=== PATIENT | female | born 1980 | race Caucasian/White ===

== ENCOUNTER 2023-06-25 12:36 | Emergency (ER) | payer BC, SELFPAY ==
[2023-06-25 12:41] VITALS: BP 125/78; PULSE 74; RESP 16; TEMP 36.6; O2SAT 100; BMI 25.8
--- NOTE | 2023-06-25 12:53 | XRR_ITS ---
PROCEDURE INFORMATION: Exam: XR Right Finger(s) Exam date and time: 06/25/2023 1:04 PM Age: 43 years old Clinical indication: Injury or trauma; Other: Smashed; Work related; Blunt trauma (contusions or hematomas); Finger; Right; Thumb; Additional info: Trauma; Thumb TECHNIQUE: Imaging protocol: Radiologic exam of the right fingers. Views: Minimum 2 views. COMPARISON: No relevant prior studies available. FINDINGS: Bones/joints: Acute nondisplaced fracture of the thumb distal phalanx. There is lucency through the proximal phalanx of the thumb in the region of the interphalangeal joint, possibly projectional. Consider additional views or correlation with CT to exclude nondisplaced fracture of the proximal phalanx. Soft tissues: Soft tissue edema of the thumb. No evidence of radiopaque foreign body. XR/XR finger RT min 2V [id number] IMPRESSION: 1. Acute nondisplaced fracture of the thumb distal phalanx with soft tissue edema. 2. Lucency through the proximal phalanx of the thumb in the region of the interphalangeal joint, possibly projectional. Consider additional views or correlation with CT to exclude nondisplaced fracture of the proximal phalanx.
--- NOTE | 2023-06-25 12:53 | XRR_ITS ---
PROCEDURE INFORMATION: Exam: XR Left Finger(s) Exam date and time: 06/25/2023 1:04 PM Age: 43 years old Clinical indication: Injury or trauma; Other: Smashed; Work related; Blunt trauma (contusions or hematomas); Finger; Left; Thumb; Additional info: Trauma; Thumb TECHNIQUE: Imaging protocol: Radiologic exam of the left fingers. Views: Minimum 2 views. COMPARISON: No relevant prior studies available. FINDINGS: Bones/joints: No evidence of fracture or subluxation. Soft tissues: Grossly unremarkable. No evidence of radiopaque foreign body. XR/XR finger LT min 2V [id number] IMPRESSION: 1. No evidence of fracture or subluxation.
--- NOTE | 2023-06-25 12:53 | ED_ITS ---
HPI - Extremity Injury (Upper) General: Chief Complaint: Extremity Injury, Upper Stated Complaint: smashed left and right thumbs Time Seen by Provider: 06/25/23 12:38 Source: patient Mode of arrival: ambulatory Limitations: no limitations History of Present Illness: Patient is a 43-year-old female presents to ED today with complaint of bilateral thumb pain/injury that she sustained after she was driving fence posts and accidentally smashed both thumbs. She states her tetanus is up-to-date. complaint: injury to: left, right and finger (thumbs) Onset (ago): hour(s) Other Extremity Injury: Bilateral: fingers (thumbs) Other injuries: none Place: home Severity: mild Relieving factors: none Exacerbating factors: none Context: crush Associated symptoms: Reports no associated symptoms Review of Systems Musc: Reports: extremity pain (bilateral thumbs) Neuro: Denies: numbness in extremities or sensory changes Physical Exam Const: COMMON NORMALS: no acute distress, average body habitus, patient oriented x3, no limitations, healthy appearing, alert and well nourished Extremity: COMMON NORMALS: full ROM and capillary refill normal GENERAL: Yes normal exam except as noted RIGHT UPPER EXTREMITY: Yes hand & digits (contusion to distal R thumb with non-viable skin flap/tear) Right hand and digits: Yes ROM exam (normal) LEFT UPPER EXTREMITY: Yes hand & digits (L thumb contusion at IP joint; edema; abrasion; no laceration) Left hand and digits: Yes neurovascular exam (normal) Neuro: COMMON NORMALS: patient oriented x3, moves all extremities, no focal motor deficits and no sensory deficits noted SENSORIUM/ORIENTATION: Yes alert Course Vital Signs: Vital signs: Vital Signs Temperature 97.9 F 06/25/23 12:41 Pulse Rate 74 06/25/23 12:41 Respiratory Rate 16 06/25/23 12:41 Blood Pressure 125/78 06/25/23 12:41 Pulse Oximetry 100 06/25/23 12:41 Oxygen Delivery Me thod Room Air 06/25/23 12:41 MDM - Extremity Injury (Upper) Medical Decision Making Patient underwent XR imaging of R and L thumbs due to injuries. Unfortunately there was initially a mix up on the XRs and the L thumb got x-rayed under the R thumb order and vice versa. This lead to me initially telling the patient her R thumb was broke and will be splinted instead of her L. This error was caught by the patient herself who alerted me that she felt the XRs were backwards which indeed they were. Patient does seem agitated regarding the mistake and I fully apologized for the error. XR tech was also alerted and they will change the films. Patient's left thumb will be splinted and she will follow up with orthopedics for this. Return to ED precautions given. Infection/wound care precautions discussed in regards to the abrasions/skin tears. Nothing was amendable to closure/repair today. XR interpretation done by ED provider, pending radiology final review Discharge Plan Discharge Patient Disposition: Home Clinical Impression: Fracture of proximal phalanx of left thumb Qualifiers: Encounter type: initial encounter Fracture type: closed Fracture alignment: nondisplaced Qualified Code(s): S62.515A - Nondisplaced fracture of proximal phalanx of left thumb, initial encounter for closed fracture Fracture of distal phalanx of left thumb Qualifiers: Encounter type: initial encounter Fracture type: closed Fracture alignment: nondisplaced Qualified Code(s): S62.525A - Nondisplaced fracture of distal phalanx of left thumb, initial encounter for closed fracture Condition: Stable Prescriptions: New cephalexin 500 mg capsule 500 mg PO Q6H 7 Days Qty: 28 0RF Discharge Orders: Discharge ED (Routine); Ordered 06/25/23 Ordered By: Nhung Dugan Patient Instructions: Thumb Fracture (ED) Activity Restrictions/Additional Instructions: As we discussed you need to keep wound clean to your thumb with warm soap and water 2-3 times daily. Monitor for signs of infection such as redness, swelling, increased pain, streaking up your hand or arm, fevers. Please seek medical reevaluation if these occur. He need to stay in your splint at all times until told otherwise by orthopedics. Case management should reach out to you shortly and help set you up with this follow-up appointment. Coding Level of Care Code ED Clinical Research Administrator for Larry Babcock
[2023-06-25 14:46] VITALS: PULSE 75; RESP 16; O2SAT 97
[2023-06-25 14:47] VITALS: PULSE 75; RESP 16; O2SAT 97
--- NOTE | 2023-06-25 17:58 | DCPLANNER ---
Addendum entered by Stephanie Ramirez 07/01/23 14:45: Patient wants to see hand specialists at [facility] hand specialists. at 1448. Original Note: Message sent to Ortho for a follow up on a rt distal thumb fracture.
--- NOTE | 2023-07-01 15:59 | DCPLANNER ---
On 07/01/23 at 1559 pm I faxed this patients chart and sent images to [facility]. I faxed chart to [phone] which is [facility] per patient request. Phone number to this clinic is [phone].
== END 2023-06-25 14:49 | disposition home or self-care (01) ==
PROVIDERS: Emergency Provider Physician Assistant
DX: S62.515A Nondisplaced fracture of proximal phalanx of left thumb, initial encounter for closed fracture (principal); S62.525A Nondisplaced fracture of distal phalanx of left thumb, initial encounter for closed fracture; X58.XXXA Exposure to other specified factors, initial encounter
CPT/HCPCS: 73140; 99283

== ENCOUNTER 2023-07-18 16:12 | Outpatient (RCR) | payer BC, SELFPAY | END 2023-07-25 23:59 | disposition home or self-care (01) | LOC: SOT 16:12 | PROVIDERS: Visit Provider Orthopaedic Surgery | DX: S62.662D Nondisplaced fracture of distal phalanx of right middle finger, subsequent encounter for fracture with routine healing (principal); X58.XXXD Exposure to other specified factors, subsequent encounter | CPT/HCPCS: 97022; 97110; 97165; 97530 ==

== ENCOUNTER 2023-07-26 06:00 | Outpatient (RCR) | payer BC, SELFPAY | END 2023-08-25 23:59 | disposition home or self-care (01) | LOC: SOT 06:00 | PROVIDERS: Visit Provider Orthopaedic Surgery | DX: S62.662D Nondisplaced fracture of distal phalanx of right middle finger, subsequent encounter for fracture with routine healing (principal); X58.XXXD Exposure to other specified factors, subsequent encounter | CPT/HCPCS: 97022; 97110; 97140 ==

== ENCOUNTER → 2023-08-06 13:29 | Outpatient (BNVA) | payer BC, SELFPAY | PROVIDERS: Visit Provider Orthopaedic Surgery | DX: M54.9 Dorsalgia, unspecified (principal); M47.22 Other spondylosis with radiculopathy, cervical region | CPT/HCPCS: 72050; 72072 ==

== ENCOUNTER 2023-08-26 06:00 | Outpatient (RCR) | payer BC, SELFPAY | END 2023-09-24 23:59 | disposition home or self-care (01) | LOC: SOT 06:00 | PROVIDERS: Visit Provider Orthopaedic Surgery | DX: S62.662D Nondisplaced fracture of distal phalanx of right middle finger, subsequent encounter for fracture with routine healing (principal); X58.XXXD Exposure to other specified factors, subsequent encounter | CPT/HCPCS: 97022; 97110; 97140 ==

== ENCOUNTER 2023-09-04 16:34 | Outpatient (CLI) | payer BC, SELFPAY ==
--- NOTE | 2023-09-04 16:45 | MR_ITS ---
WS: [id number] MRI CERVICAL SPINE NONCONTRAST TECHNIQUE: Sagittal T1, T2 and STIR imaging. Axial T2, gradient, and fiesta imaging. CLINICAL INFORMATION: neck pain COMPARISON: None FINDINGS: Straightening the normal cervical lordosis. Cord signal is normal. Disc bulging worse at C6-7 with s light indentation of the cervical cord and mild central canal stenosis. C2-C3: Normal. C3-C4: Mild facet arthropathy. Mild RIGHT and no significant LEFT foraminal narrowing. Spinal canal i s patent. C4-C5: Mild RIGHT and no significant LEFT foraminal narrowing. Mild facet arthropathy. C5-C6: Minimal disc bulging. Mild LEFT and no significant RIGHT foraminal narrowing. Spinal canal is patent. Mild facet arthropathy. C6-C7: Shallow broad-based disc bulging with slight indentation on the cervical cord. Mild central ca nal stenosis. Moderate LEFT and mild RIGHT bony foraminal narrowing. Mild facet arthropathy. C7-T1: Mild LEFT and no significant RIGHT foraminal narrowing. Endplate osteophytic ridging. Spinal c anal is patent. Visualized brain stem structures: Normal. Prevertebral soft tissues: Normal. IMPRESSION: 1. Straightening of the normal cervical lordosis. 2. Broad-based central protrusion C6-7 with slight indentation of the cervical cord. Mild central ca nal stenosis. 3. Moderate LEFT C6-7 bony foraminal narrowing. 4. Otherwise mild foraminal narrowing described above.
== END 2023-09-04 16:35 | disposition home or self-care (01) ==
LOC: RAD 16:34
PROVIDERS: Visit Provider Orthopaedic Surgery
DX: M54.2 Cervicalgia (principal)
CPT/HCPCS: 72141

== ENCOUNTER → 2024-01-20 11:36 | Outpatient (BNVA) | payer BC, SELFPAY | PROVIDERS: PCP Family Medicine; Visit Provider Internal Medicine | DX: E03.8 Other specified hypothyroidism (principal); E06.3 Autoimmune thyroiditis; E78.49 Other hyperlipidemia; R79.89 Other specified abnormal findings of blood chemistry | CPT/HCPCS: 36415; 80061; 82306; 84439; 84443; 86376; 86800 ==

== ENCOUNTER → 2024-06-17 13:36 | Outpatient (BNVA) | payer BC, SELFPAY | PROVIDERS: PCP Family Medicine; Visit Provider Internal Medicine | DX: E03.8 Other specified hypothyroidism (principal); E06.3 Autoimmune thyroiditis; E78.49 Other hyperlipidemia; R79.89 Other specified abnormal findings of blood chemistry; M25.50 Pain in unspecified joint | CPT/HCPCS: 36415; 80053; 80061; 82044; 82306; 83036; 84439; 84443; 85651; 86140; 86160; 86162; 86200; 86235; 86255; 86376; 86431; 86812 ==